=== PATIENT | female | born 1945 | race Caucasian/White ===

== ENCOUNTER 2017-05-10 18:36 | Observation (INO) | payer MEDICARE, OTHER ==
[2017-05-10] MEDS ORDERED: Aspirin 81 MG Tab.Chew PO ONE (19:00)
[2017-05-10] MEDS ORDERED: Clopidogrel 75 MG Tab PO ONE (19:11)
[2017-05-10] MEDS ORDERED: Morphine 2 MG/ML Syringe IVPUSH PRN (20:37)
[2017-05-11] MEDS ORDERED: Rosuvastatin 10 MG Tab PO SCH (09:00)
[2017-05-11] MEDS ORDERED: Aspirin 81 MG Tab.EC PO ONE (13:09)
--- NOTE | 2017-05-11 13:11 | CR ---
INDICATION: Chest pain x2 weeks. Q-waves. CHEST: PA and lateral views of the chest were obtained 05/10/2017. No comparison studies were available. The heart is normal in size and shape. The mediastinum was essentially unremarkable. Mild degenerative changes and a mild dextroconcave scoliosis are noted in the mid thoracic spine. Overlying EKG leads are noted. A definite active infiltrate or effusion was not identified. IMPRESSION: No acute process. MTDD
--- NOTE | 2017-05-11 13:43 | PCM.HP ---
H&P History of Present Illness - General Date of Service: 05/11/17 Admit Problem/Dx: Admission Diagnosis/Problem Admission Diagnosis/Problem Chest pain Source of Information: Patient, Old Records, Provider History Limitations: Reports: No Limitations - History of Present Illness Initial Comments - Free Text/Narative: Patient is a 71-year-old female who about 2 weeks ago was shoveling snow and hit a very icy heavy patch. Later in the day she noted she had some left-sided chest pain with radiation into the axilla and felt a little bit more short of breath than usual. She is always a little short of breath but the shortness of breath seemed a little more pronounced with any activity. She just really played out. She thought she might have pulled a muscle, and the pain waxed and waned. Was not very severe. It persisted until 2 nights ago, Sunday night, she woke up out of sleep with a heavy feeling in her chest like a cement block on her chest. The pain was quite severe. She had no other associated symptoms with it. No shortness of breath, no sweats, no nausea, no vomiting, no dizziness. It lasted all night and when she got up in the morning actually felt quite a bit better once she was up and about. She does have a history of some occasional heartburn but nothing that felt like this. She thought she would wait and see what happened but after speaking with her sons they encouraged her to go into the emergency room so she presented to the emergency room yesterday for further evaluation of this chest pain. It has continued to come and go. The shortness of breath hasn't changed at all and she doesn't have any dyspnea on exertion. It's more of a feeling of fatigue/playing out. She had a negative d- dimer in the emergency room and has had 2 negative troponins. On the monitor overnight she did show normal sinus rhythm with a negative EKG on admission and at this time. However she did have 9 beats of V. tach overnight. She currently has a little ache in the left breast area which doesn't radiate to the left armpit. Past medical history: #1 hyperlipidemia currently treated with Crestor. No other past medical problems. No heart attacks, no strokes, no cancers. No hospitalizations. Social history: Nonsmoker, nondrinker, retired from the [employer] office. Still works 4 hours a day 4 days a week at [employer]. She lives alone and is . Has 3 healthy sons. Family history: 3 healthy sons with no medical problems although her middle son does have some type of thickening of the heart. Some perhaps hypertrophy. Mother of a stroke at the age of 89 and had Alzheimer's dementia. She had a myocardial infarction in her 80s. Dad from a massive heart attack at the age of 75. No history of early heart disease in the family. No sudden from unknown cause. Allergies: Aspirin is listed as an allergy but the patient took it for many years until in her 20s she had an episode of vomiting from aspirin and has never taken it since. Never had any rash or hives from it. No shortness of breath from it. 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: - Infectious Disease History Infectious Disease History: Reports: Chicken Pox - Past Surgical History HEENT Surgical History: Reports: None Social & Family History - Family History Family Medical History: Noncontributory - Tobacco Use Smoking Status *Q: Never Smoker Second Hand Smoke Exposure: No - Caffeine Use Caffeine Use: Reports: Coffee - Recreational Drug Use Recreational Drug Use: No H&P Review of Systems - Review of Systems: Review Of Systems: See Below (No recent trips, long car rides, traumas, periods of prolonged bed rest, family hx of sudden of unknown cause or hx of blood clots in family.) General: Reports: No Symptoms HEENT: Reports: No Symptoms Pulmonary: Reports: Shortness of Breath (no pain with inspiration, no change in symptoms with deep breathing.) Cardiovascular: Reports: Chest Pain (pressure, discomfort to the left of the sternum, localizes to a quarter-sized area between the 4-6 ribs just lateral to the sternal edge.) Gastrointestinal: Reports: No Symptoms Genitourinary: Reports: No Symptoms Musculoskeletal: Reports: No Symptoms Exam - Exam Exam: See Below - Vital Signs Vital Signs: Last Vital Signs Temp 36.8 C 05/11/17 12:30 Pulse 55 L 05/11/17 04:00 Resp 17 05/11/17 12:30 BP 128/76 05/11/17 12:30 Pulse Ox 98 05/11/17 12:30 Weight: 75.977 kg - Exam General: Alert, Oriented, Cooperative HEENT: PERRLA, Conjunctiva Clear, Pupils Equal, Pupils Reactive Neck: Supple Lungs: Clear to Auscultation Cardiovascular: Regular Rate, Regular Rhythm, Normal S1, Normal S2, Other (With palpation in the area of question, able to reproduce pain (see ROS)) GI/Abdominal Exam: Normal Bowel Sounds, Soft, Non-Tender, No Distention, No Mass Back Exam: Normal Inspection, Full Range of Motion Extremities: No Pedal Edema (No calf tenderness, no swelling. No redness.) - Patient Data Lab Results Last 24 hrs: Laboratory Results - last 24 hr 05/10/17 05/11/17 05/11/17 Range/Units 23:08 06:25 06:25 WBC 6.3 (4.5-12.0) X10-3/uL RBC 4.48 (3.23-5.20) x10(6)uL Hgb 13.0 (11.5-15.5) g/dL Hct 38.7 (30.0-51.3) % MCV 86.5 (80-96) fL MCH 29.1 (27.7-33.6) pg MCHC 33.6 (32.2-35.4) g/dL RDW 12.1 (11.5-15.5) % Plt Count 185 (125-369) X10(3)uL MPV 8.7 (7.4-10.4) fL Neut % (Auto) 52.1 (46-82) % Lymph % (Auto) 36.8 (13-37) % [place] % (Auto) 8.5 (4-12) % Eos % (Auto) 2 (1.0-5.0) % Baso % (Auto) 1 (0-2) % Neut # (Auto) 3.4 (1.6-8.3) # Lymph # (Auto) 2.3 (0.6-5.0) # [place] # (Auto) 0.5 (0.0-1.3) # Eos # (Auto) 0.1 (0.0-0.8) # Baso # (Auto) 0.0 (0.0-0.2) # Sodium 146 H (135-145) mmol/L Potassium 4.0 (3.5-5.3) mmol/L Chloride 110 (100-110) mmol/L Carbon Dioxide 25 (21-32) mmol/L BUN 14 (7-18) mg/dL Creatinine 0.8 (0.55-1.02) mg/dL Est Cr Clr Drug Dosing 57.31 mL/min Estimated GFR (MDRD) > 60 (>60) BUN/Creatinine Ratio 17.5 (9-20) Glucose 94 (80-116) mg/dL Calcium 8.5 L (8.6-10.2) mg/dL Creatine Kinase 87 (60-160) IU/L CK-MB (CK-2) 0.8 (0.5-5.0) ng/mL Troponin I (<0.017-0.056) ng/mL Urine Color Yellow (YELLOW) Urine Appearance Slightly cloudy (CLEAR) Urine pH 5.0 (5.0-6.5) Ur Specific [place] 1.020 (1.010-1.025) Urine Protein Negative (NEGATIVE) mg/dL Urine Glucose (UA) Normal (NEGATIVE) mg/dL Urine Ketones Negative (NEGATIVE) mg/dL Urine Occult Blood Negative (NEGATIVE) Urine Nitrite Negative (NEGATIVE) Urine Bilirubin Negative (NEGATIVE) Urine Urobilinogen Normal (NEGATIVE) mg/dL Ur Leukocyte Esterase Small H (NEGATIVE) Urine RBC 0-5 (0) Urine WBC 5-10 (0) Ur Squamous Epith Cells Few H (NS,R,O) Urine Bacteria Few H (NS) 05/11/17 Range/Units 06:25 WBC (4.5-12.0) X10-3/uL RBC (3.23-5.20) x10(6)uL Hgb (11.5-15.5) g/dL Hct (30.0-51.3) % MCV (80-96) fL MCH (27.7-33.6) pg MCHC (32.2-35.4) g/dL RDW (11.5-15.5) % Plt Count (125-369) X10(3)uL MPV (7.4-10.4) fL Neut % (Auto) (46-82) % Lymph % (Auto) (13-37) % [place] % (Auto) (4-12) % Eos % (Auto) (1.0-5.0) % Baso % (Auto) (0-2) % Neut # (Auto) (1.6-8.3) # Lymph # (Auto) (0.6-5.0) # [place] # (Auto) (0.0-1.3) # Eos # (Auto) (0.0-0.8) # Baso # (Auto) (0.0-0.2) # Sodium (135-145) mmol/L Potassium (3.5-5.3) mmol/L Chloride (100-110) mmol/L Carbon Dioxide (21-32) mmol/L BUN (7-18) mg/dL Creatinine (0.55-1.02) mg/dL Est Cr Clr Drug Dosing mL/min Estimated GFR (MDRD) (>60) BUN/Creatinine Ratio (9-20) Glucose (80-116) mg/dL Calcium (8.6-10.2) mg/dL Creatine Kinase (60-160) IU/L CK-MB (CK-2) (0.5-5.0) ng/mL Troponin I < 0.017 L (<0.017-0.056) ng/mL Urine Color (YELLOW) Urine Appearance (CLEAR) Urine pH (5.0-6.5) Ur Specific [place] (1.010-1.025) Urine Protein (NEGATIVE) mg/dL Urine Glucose (UA) (NEGATIVE) mg/dL Urine Ketones (NEGATIVE) mg/dL Urine Occult Blood (NEGATIVE) Urine Nitrite (NEGATIVE) Urine Bilirubin (NEGATIVE) Urine Urobilinogen (NEGATIVE) mg/dL Ur Leukocyte Esterase (NEGATIVE) Urine RBC (0) Urine WBC (0) Ur Squamous Epith Cells (NS,R,O) Urine Bacteria (NS) Result Diagrams: 05/11/17 06:25 05/11/17 06:25 *Q Meaningful Use (ADM) - VTE *Q VTE Criteria *Q: - Stroke *Q Stroke Criteria *Q: - AMI *Q AMI Criteria *Q: - Problem List (1) Chest pain SNOMED Code(s): 40795433 ICD Code: R07.9 - CHEST PAIN, UNSPECIFIED Status: Acute Current Visit: Yes Problem Details: Pain is atypical, but with shortness of breath component and the fact that women often have atypical features, we can't completely rule out the possibility of coronary artery disease causing this pain without a stress test. Unfortunately, that is not available here. 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. I spoke with Dr. Senior precision filer hand from [facility] and he felt that given her atypical symptoms, the best course would be to have a stress test before discharge. However, that would mean patient would need to be transferred to [place] and wait in the hospital until she can have the stress test, as it can't be done here. If she is unwilling to do that, we could instead discharge her with minimal activity, return if new symptoms, and set up an outpatient stress test LINDY. After discussion with the patient she opted for outpatient testing. She doesn't have a true allergy to aspirin, as she used it many times as a young adult, but in her 20s had an episode where it made her vomit and she hasn't used it since. We gave her an enteric coated aspirin which she tolerated well and will take a baby asa daily until the stress test. No work until after stress test. He did not feel the 9 beats of VT were concerning. (2) Hyperlipidemia SNOMED Code(s): 08184804 ICD Code: E78.5 - HYPERLIPIDEMIA, UNSPECIFIED Status: Acute Current Visit : Yes Problem Details: Continue outpatient medication. Problem List Initiated/Reviewed/Updated: Yes Orders Last 24hrs: Active Orders 24 hr Category Date Time Status Rosuvastatin [Crestor] Med 05/11/17 09:00 Active 10 mg PO DAILY Medication Orders Morphine Sulfate (Morphine) 2 mg IVPUSH Q2H PRN PRN Reason: Pain (severe 7-10) Rosuvastatin Calcium (Crestor) 10 mg PO DAILY PASTOR Last Admin: 05/11/17 09:38 Dose: 10 mg Assessment/Plan Comment:: CODE STATUS discussed at length. The patient would really not want heroics done if it meant she would live as a vegetable. However, she is very healthy and at this point one of the best candidates for resuscitation even though resuscitation in and of itself is not terribly successful because patients essentially before they need it. We discussed this extensively and at this time the patient felt for the time being she is a full code. However if her health changes she would want to reconsider.
--- NOTE | 2017-05-11 14:09 | PCM.DCSUM1 ---
Discharge Summary - Hospital Course Free Text/Narrative:: Please see admission H&P which was done on the day of discharge. - Discharge Data Discharge Date: 05/11/17 Discharge Disposition: Home, Self-Care 01 Condition: Good - Discharge Diagnosis/Problem(s) (1) Chest pain SNOMED Code(s): 93480311 ICD Code: R07.9 - CHEST PAIN, UNSPECIFIED Status: Acute Current Visit: Yes Problem Details: Pain is atypical, but with shortness of breath component and the fact that women often have atypical features, we can't completely rule out the possibility of coronary artery disease causing this pain without a stress test. Unfortunately, that is not available here. 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 I spoke with Dr. Senior mannequin maker from [facility] and he felt that given her atypical symptoms, the best course would be to have a stress test before discharge. However, that would mean patient would need to be transferred to [place] and wait in the hospital until she can have the stress test, as it can't be done here. If she is unwilling to do that, we could instead discharge her with minimal activity, return if new symptoms, and set up an outpatient stress test LINDY. After discussion with the patient she opted for outpatient testing. She doesn't have a true allergy to aspirin, as she used it many times as a young adult, but in her 20s had an episode where it made her vomit and she hasn't used it since. We gave her an enteric coated aspirin which she tolerated well and will take a baby asa daily until the stress test. No work until after stress test. He did not feel the 9 beats of VT were concerning. (2) Hyperlipidemia SNOMED Code(s): 02720507 ICD Code: E78.5 - HYPERLIPIDEMIA, UNSPECIFIED Status: Acute Current Visit : Yes Problem Details: Continue outpatient medication. - Patient Instructions Diet: Heart Healthy Diet Driving: May Drive Today - Discharge Plan Prescriptions/Med Rec: Aspirin [Halfprin] 81 mg PO DAILY #100 tab.ec Home Medications: Home Meds Rosuvastatin Calcium 10 mg PO DAILY 05/10/17 [History] Aspirin [Halfprin] 81 mg PO DAILY #100 tab.ec 05/11/17 [Rx] Forms: ED Department Discharge Referrals: Carolee Mittal NP [Primary Care Provider] - - Patient Data Vitals - Most Recent: Last Vital Signs Temp 36.8 C 05/11/17 12:30 Pulse 55 L 05/11/17 04:00 Resp 17 05/11/17 12:30 BP 128/76 05/11/17 12:30 Pulse Ox 98 05/11/17 12:30 Weight - Most Recent: 75.977 kg I&O - Last 24 hours: Intake & Output 05/10/17 05/11/17 05/11/17 22:59 06:59 14:59 Intake Total 250 Output Total 100 250 Balance -100 0 Lab Results - Last 24 hrs: Laboratory Results - last 24 hr 05/10/17 05/11/17 05/11/17 Range/Units 23:08 06:25 06:25 WBC 6.3 (4.5-12.0) X10-3/uL RBC 4.48 (3.23-5.20) x10(6)uL Hgb 13.0 (11.5-15.5) g/dL Hct 38.7 (30.0-51.3) % MCV 86.5 (80-96) fL MCH 29.1 (27.7-33.6) pg MCHC 33.6 (32.2-35.4) g/dL RDW 12.1 (11.5-15.5) % Plt Count 185 (125-369) X10(3)uL MPV 8.7 (7.4-10.4) fL Neut % (Auto) 52.1 (46-82) % Lymph % (Auto) 36.8 (13-37) % [place] % (Auto) 8.5 (4-12) % Eos % (Auto) 2 (1.0-5.0) % Baso % (Auto) 1 (0-2) % Neut # (Auto) 3.4 (1.6-8.3) # Lymph # (Auto) 2.3 (0.6-5.0) # [place] # (Auto) 0.5 (0.0-1.3) # Eos # (Auto) 0.1 (0.0-0.8) # Baso # (Auto) 0.0 (0.0-0.2) # Sodium 146 H (135-145) mmol/L Potassium 4.0 (3.5-5.3) mmol/L Chloride 110 (100-110) mmol/L Carbon Dioxide 25 (21-32) mmol/L BUN 14 (7-18) mg/dL Creatinine 0.8 (0.55-1.02) mg/dL Est Cr Clr Drug Dosing 57.31 mL/min Estimated GFR (MDRD) > 60 (>60) BUN/Creatinine Ratio 17.5 (9-20) Glucose 94 (80-116) mg/dL Calcium 8.5 L (8.6-10.2) mg/dL Creatine Kinase 87 (60-160) IU/L CK-MB (CK-2) 0.8 (0.5-5.0) ng/mL Troponin I (<0.017-0.056) ng/mL Urine Color Yellow (YELLOW) Urine Appearance Slightly cloudy (CLEAR) Urine pH 5.0 (5.0-6.5) Ur Specific [place] 1.020 (1.010-1.025) Urine Protein Negative (NEGATIVE) mg/dL Urine Glucose (UA) Normal (NEGATIVE) mg/dL Urine Ketones Negative (NEGATIVE) mg/dL Urine Occult Blood Negative (NEGATIVE) Urine Nitrite Negative (NEGATIVE) Urine Bilirubin Negative (NEGATIVE) Urine Urobilinogen Normal (NEGATIVE) mg/dL Ur Leukocyte Esterase Small H (NEGATIVE) Urine RBC 0-5 (0) Urine WBC 5-10 (0) Ur Squamous Epith Cells Few H (NS,R,O) Urine Bacteria Few H (NS) 05/11/17 Range/Units 06:25 WBC (4.5-12.0) X10-3/uL RBC (3.23-5.20) x10(6)uL Hgb (11.5-15.5) g/dL Hct (30.0-51.3) % MCV (80-96) fL MCH (27.7-33.6) pg MCHC (32.2-35.4) g/dL RDW (11.5-15.5) % Plt Count (125-369) X10(3)uL MPV (7.4-10.4) fL Neut % (Auto) (46-82) % Lymph % (Auto) (13-37) % [place] % (Auto) (4-12) % Eos % (Auto) (1.0-5.0) % Baso % (Auto) (0-2) % Neut # (Auto) (1.6-8.3) # Lymph # (Auto) (0.6-5.0) # [place] # (Auto) (0.0-1.3) # Eos # (Auto) (0.0-0.8) # Baso # (Auto) (0.0-0.2) # Sodium (135-145) mmol/L Potassium (3.5-5.3) mmol/L Chloride (100-110) mmol/L Carbon Dioxide (21-32) mmol/L BUN (7-18) mg/dL Creatinine (0.55-1.02) mg/dL Est Cr Clr Drug Dosing mL/min Estimated GFR (MDRD) (>60) BUN/Creatinine Ratio (9-20) Glucose (80-116) mg/dL Calcium (8.6-10.2) mg/dL Creatine Kinase (60-160) IU/L CK-MB (CK-2) (0.5-5.0) ng/mL Troponin I < 0.017 L (<0.017-0.056) ng/mL Urine Color (YELLOW) Urine Appearance (CLEAR) Urine pH (5.0-6.5) Ur Specific [place] (1.010-1.025) Urine Protein (NEGATIVE) mg/dL Urine Glucose (UA) (NEGATIVE) mg/dL Urine Ketones (NEGATIVE) mg/dL Urine Occult Blood (NEGATIVE) Urine Nitrite (NEGATIVE) Urine Bilirubin (NEGATIVE) Urine Urobilinogen (NEGATIVE) mg/dL Ur Leukocyte Esterase (NEGATIVE) Urine RBC (0) Urine WBC (0) Ur Squamous Epith Cells (NS,R,O) Urine Bacteria (NS) Med Orders - Current: Current Medications Morphine Sulfate (Morphine) 2 mg IVPUSH Q2H PRN PRN Reason: Pain (severe 7-10) Rosuvastatin Calcium (Crestor) 10 mg PO DAILY [facility] Last Admin: 05/11/17 09:38 Dose: 10 mg Discontinued Medications Aspirin (Aspirin) 324 mg PO ONETIME ONE Stop: 05/10/17 19:01 Last Admin: 05/10/17 19:00 Dose: Not Given Aspirin (Halfprin) 81 mg PO ONETIME ONE Stop: 05/11/17 13:10 Last Admin: 05/11/17 13:23 Dose: 81 mg Clopidogrel Bisulfate (Plavix) 600 mg PO ONETIME ONE Stop: 05/10/17 19:12 Last Admin: 05/10/17 20:46 Dose: 600 mg *Q Meaningful Use (DIS) - VTE *Q VTE Criteria *Q: - Stroke *Q Stroke Criteria *Q: - AMI *Q AMI Criteria *Q:
--- NOTE | 2017-05-12 07:21 | ER ---
DATE SEEN: 05/10/2017 REASON FOR VISIT: Chest pain. HISTORY OF PRESENT ILLNESS: This is a 71-year-old female with chest pain on and off for 2 weeks. In the last night, the pain got worse to the point that she was unable to sleep. She describes central pain like a cement block on her chest associated with shortness of breath on any ambulation, but no cough, fever, or chills. She has never had anything like this before. PAST MEDICAL HISTORY: Hyperlipidemia. SOCIAL HISTORY: Does not smoke or drink. ALLERGIES: Aspirin caused gastrointestinal bleeding. MEDICATIONS: Rosuvastatin 10 mg a day. FAMILY HISTORY: Noncontributory. PHYSICAL EXAMINATION: VITAL SIGNS: Blood pressure in the 100 systolic. She is afebrile. Normal oxygenation on room air. ENT: Negative. NECK: Supple with no JVD. CARDIOVASCULAR: Normal S1, S2. No murmurs. ABDOMEN: Soft. MENTAL STATUS: Alert. SKIN: No pallor or jaundice. RESPIRATORY: Clear. DIAGNOSTIC STUDIES: Chest x-ray unremarkable. EKG no ST changes, convincing. Normal troponin, D-dimer and BNP 512. IMPRESSION: 1. Atypical chest pain. 2. Hyperlipidemia. PLAN: The patient got Plavix in the ER because of allergy to aspirin. We will admit under telemetry with rule out orders and repeat EKG in the morning. TIME SEEN: 2000 hours. /[id number] JUSTICE/[place]L
== END 2017-05-11 14:50 | disposition home or self-care (01) ==
LOC: FB.ED 18:36 → FB.ICU 20:37
PROVIDERS: ADMIT Family Medicine; ATTEND Family Medicine
DX: R07.89 Other chest pain (principal); E78.5 Hyperlipidemia, unspecified; Z79.82 Long term (current) use of aspirin; Z79.899 Other long term (current) drug therapy; Z88.6 Allergy status to analgesic agent
CPT/HCPCS: 36415; 71046; 80048; 80053; 81001; 82550; 82553; 83880; 84484; 85025; 85379; 85610; 86140; 93005; 99285; A9270; G0378